=== PATIENT | male | born 1990 | race Caucasian/White ===

== ENCOUNTER 2016-06-06 14:51 | Emergency (ER) | payer MEDICAID ==
[2016-06-06] MEDS ORDERED: Sodium Chloride 0.9% 1,000 ML IV ONE (15:20)
--- NOTE | 2016-06-06 15:20 | EDM.PDOC ---
ED HISTORY OF PRESENT ILLNESS - General Chief Complaint: Respiratory Problem Stated Complaint: CHEST PAIN Time Seen by Provider: 06/06/16 15:14 Source of Information: Reports: Patient History Limitations: Reports: No limitations - History of Present Illness INITIAL COMMENTS - FREE TEXT/NARRATIVE: 25-year-old male presents the ED with complaints of diffuse central chest pain it radiates through towards his left shoulder blade. Seemed to start almost in the pit of his stomach. On for the last 2 weeks which is much worse today than it has ever been. He is obviously hyperventilating. He denies feeling of a tingling in his extremities. He is a little lightheaded. He states he does not use energy drinks. Does not use any street drugs. Does smoke cigarettes she is a pack per day. Drinks alcohol occasionally. He is otherwise considered healthy. His ECG shows sinus tachycardia at 120 per minute with T wave inversion in V5 V6 23 and aVF there for some given some consideration of possible pericarditis. He states the pain is worse when he lies down. He is febrile chested he has left ventricular hypertrophy pattern which is considered normal variation. QT interval is prolonged at 402. States he does do cough. Has not been sick recently with fever or chills. Denies any nausea vomiting. Denies any heartburn Symptom Onset Date: 06/06/16 (Facet having similar symptoms off and on for the better part of 2 weeks. If she is worse today.) Timing/Duration: Reports: Day(s):, Getting worse, Intermittent, Waxing/waning Severity: severe (Dates 10 out of 10 central chest the) Location, General: Reports: chest (Chest mostly at the lower retrosternal area radiating to to the left is) Quality: Reports: Ache, Other (Feels like he can't get a full deep breath.) Improves with: Reports: None Worsens with: Reports: None Context, General: Denies: Activity, Exercise, Lifting, Sick contact, Trauma, Other Associated Symptoms (General): Reports: chest pain, shortness of breath. Denies : confusion, cough, cough w sputum, diaphoresis, fever/chills, headaches, loss of appetite, malaise, nausea/vomiting, rash, seizure, syncope Treatments [employer]: Reports: Other (see below) (None) - Related Data Allergies/ADRs: Allergies Allergy/AdvReac Type Severity Reaction Status Date / Time No Known Allergies Allergy Verified 06/06/16 15:06 Home Meds: Home Meds . [No Known Home Meds] 06/06/16 [History] Past Medical History - Past Health History Medical/Surgical History: Denies Medical/Surgical History Social & Family History - Tobacco Use Smoking Status *Q: Current Every Day Smoker Years of Tobacco use: 4 Packs/Tins Daily: 0.5 - Caffeine Use Caffeine Use: Reports: Soda - Recreational Drug Use Recreational Drug Use: No ED ROS GENERAL - Review of Systems Review Of Systems: See Below Constitutional: Denies: fever, chills, malaise, weakness, fatigue, decreased appetite, weight loss HEENT: Reports: No symptoms Respiratory: Reports: Shortness of Breath, Cough. Denies: Wheezing, Pleuritic Chest Pain, Sputum, Hemoptysis (Occasional cough from smoking.) Cardiovascular: Reports: Chest pain, Lightheadedness. Denies: Blood pressure problem (He seems to present him), Claudication, Dyspnea on exertion, Edema, Orthopnea, Palpitations, PND, Syncope Endocrine: Reports: no symptoms GI/Abdominal: Reports: No symptoms : Reports: no symptoms Musculoskeletal: Reports: no symptoms Skin: Reports: no symptoms Neurological: Reports: No Symptoms Psychiatric: Reports: No symptoms Hematologic/Lymphatic: Reports: no symptoms ED EXAM, GENERAL - Physical Exam Exam: See Below Exam Limited By: No limitations General Appearance: alert, WD/WN (He is hyperventilating significantly at the time of exam.), moderate distress (Moderate to severe hyperventilation syndrome. ) Eye Exam: bilateral eye: normal inspection Ears: normal TMs Throat/Mouth: Normal inspection, Normal lips, Normal teeth, Normal oropharynx Head: atraumatic, normocephalic Neck: normal inspection, supple, non-tender, full range of motion. No: lymphadenopathy (L), lymphadenopathy (R) Respiratory/Chest: lungs clear (Motor tachypnea. 20 per minute on my assessment) , normal breath sounds, no accessory muscle use, respiratory distress, rhonchi ( Base of right lung) Cardiovascular: normal peripheral pulses, regular rate, rhythm, no edema, no gallop, no murmur, tachycardia (Tachycardia 0.33 per minute. Monitor revealed sinus tachycardia.) Peripheral Pulses: 3+: posterior tibial (L), posterior tibial (R), dorsalis pedis (L), dorsalis pedis (R) GI/Abdominal: normal bowel sounds, non tender, no organomegaly, no distention, other (Scaphoid abdomen. No organomegaly) Extremities: normal inspection, normal range of motion, non-tender, no pedal edema, normal capillary refill Neurological: alert, oriented, CN II-XII intact, normal cognition, normal gait, normal reflexes, no motor/sensory deficits Psychiatric: normal affect, normal mood Skin Exam: Warm, Dry, Intact, Normal color, No rash EKG INTERPRETATION EKG Date: 06/06/16 Time: 15:05 Rhythm: other (Sinus tachycardia at 120 per minute.) Rate (beats/min): 128 [place]: RAD-right axis deviation (Physical heart right axis deviation 104) P-wave: present QRS: other (His left ventricular hypertrophy pattern which be normal for his stature and chest and young age.) ST-T: other (He does have T wave inversion in leads V4 and V6 as well as in aVF and lead 2 and in the bone. Therefore consideration of possible pericarditis entertained.) QT: prolonged Course - Vital Signs Last Recorded V/S: Last Vital Signs Temp 36.7 C 06/06/16 15:01 Pulse 133 H 06/06/16 15:01 Resp 21 H 06/06/16 15:01 BP 125/69 06/06/16 15:01 Pulse Ox 100 06/06/16 15:01 - Orders/Labs/Meds Orders: Active Orders 24 hr Category Date Time Status EKG Documentation Completion [RC] STAT Care 06/06/16 15:21 Active Chest 1V Frontal [CR] Stat Exams 06/06/16 15:21 Taken Ketorolac [Toradol] Med 06/06/16 15:30 Active 30 mg IVPUSH ONETIME Sodium Chloride 0.9% @ 50 MLS/HR(1000ml Bag) Med 06/06/16 17:30 Ordered Sodium Chloride 0.9% [Normal Saline] 1,000 ml IV ASDIRECTED Sodium Chloride 0.9% [Normal Saline] 1,000 ml Med 06/06/16 16:00 Stop Req IV ASDIRECTED Sodium Chloride 0.9% [Normal Saline] 100 ml Med 06/06/16 16:15 Stop Req IV ASDIRECTED Medication Orders Sodium Chloride (Normal Saline) 1,000 mls @ 75 mls/hr IV ASDIRECTED SUZY Sodium Chloride (Normal Saline) 100 mls @ 60 mls/hr IV ASDIRECTED SUZY Last Admin: 06/06/16 17:02 Dose: 60 mls/hr Sodium Chloride (Normal Saline) 1,000 mls @ 50 mls/hr IV ASDIRECTED SUZY Ketorolac Tromethamine (Toradol) 30 mg IVPUSH ONETIME SUZY Last Admin: 06/06/16 15:37 Dose: 30 mg Labs: Laboratory Tests 06/06/16 06/06/16 06/06/16 Range/Units 15:10 15:10 15:10 WBC 8.89 (4.23-9.07) K/mm3 RBC 4.94 (4.63-6.08) M/mm3 Hgb 14.6 (13.7-17.5) gm/L Hct 42.1 (40.1-51.0) % MCV 85.2 (79.0-92.2) fl MCH 29.6 (25.7-32.2) pg MCHC 34.7 (32.2-35.5) g/dl RDW Std Deviation 43.8 (35.1-43.9) fL Plt Count 206 (163-337) K/mm3 MPV 12.0 (9.4-12.3) fl Neutrophils % (Manual) 72 H (40-60) % Band Neutrophils % 0 (0-10) % Lymphocytes % (Manual) 24 (20-40) % Atypical Lymphs % 0 % Monocytes % (Manual) 2 (2-10) % Eosinophils % (Manual) 2 (0.8-7.0) % Basophils % (Manual) 0 L (0.2-1.2) Platelet Estimate Adequate RBC Morph Comment Normal ESR 10 (0-15) mm/hr D-Dimer, Quantitative (0.19-0.59) mg/L Sodium 143 (136-145) mEq/L Potassium 3.8 (3.5-5.1) mEq/L Chloride 106 (98-107) mEq/L Carbon Dioxide 21 (21-32) mEq/L Anion Gap 19.8 H (5-15) BUN 16 (7-18) mg/dL Creatinine 1.1 (0.7-1.3) mg/dL Est Cr Clr Drug Dosing 109.62 mL/min Estimated GFR (MDRD) > 60 (>60) mL/min BUN/Creatinine Ratio 14.5 (14-18) Glucose 98 (74-106) mg/dL Calcium 9.1 (8.5-10.1) mg/dL Total Bilirubin 1.8 H (0.2-1.0) mg/dL AST 29 (15-37) U/L ALT 42 (16-63) U/L Alkaline Phosphatase 81 (46-116) U/L CK-MB (CK-2) 0.9 (0-3.6) ng/ml Troponin I 0.044 (0.00-0.056) ng/mL C-Reactive Protein 0.6 (<1.0) mg/dL B-Natriuretic Peptide (0-100) pg/mL Total Protein 6.5 (6.4-8.2) g/dl Albumin 3.6 (3.4-5.0) g/dl Globulin 2.9 gm/dL Albumin/Globulin Ratio 1.2 (1-2) Urine Opiates Screen (NEGATIVE) Ur Buprenorphine Scrn (NEGATIVE) Ur Oxycodone Screen (NEGATIVE) Urine Methadone Screen (NEGATIVE) Ur Propoxyphene Screen (NEGATIVE) Ur Barbiturates Screen (NEGATIVE) Ur Tricyclics Screen (NEGATIVE) Ur Phencyclidine Scrn (NEGATIVE) Ur Amphetamine Screen (NEGATIVE) U Methamphetamines Scrn (NEGATIVE) U Benzodiazepines Scrn (NEGATIVE) U Cocaine Metab Screen (NEGATIVE) U Marijuana (THC) Screen (NEGATIVE) 06/06/16 06/06/16 06/06/16 Range/Units 15:10 15:10 15:30 WBC (4.23-9.07) K/mm3 RBC (4.63-6.08) M/mm3 Hgb (13.7-17.5) gm/L Hct (40.1-51.0) % MCV (79.0-92.2) fl MCH (25.7-32.2) pg MCHC (32.2-35.5) g/dl RDW Std Deviation (35.1-43.9) fL Plt Count (163-337) K/mm3 MPV (9.4-12.3) fl Neutrophils % (Manual) (40-60) % Band Neutrophils % (0-10) % Lymphocytes % (Manual) (20-40) % Atypical Lymphs % % Monocytes % (Manual) (2-10) % Eosinophils % (Manual) (0.8-7.0) % Basophils % (Manual) (0.2-1.2) Platelet Estimate RBC Morph Comment ESR (0-15) mm/hr D-Dimer, Quantitative 1.78 H (0.19-0.59) mg/L Sodium (136-145) mEq/L Potassium (3.5-5.1) mEq/L Chloride (98-107) mEq/L Carbon Dioxide (21-32) mEq/L Anion Gap (5-15) BUN (7-18) mg/dL Creatinine (0.7-1.3) mg/dL Est Cr Clr Drug Dosing mL/min Estimated GFR (MDRD) (>60) mL/min BUN/Creatinine Ratio (14-18) Glucose (74-106) mg/dL Calcium (8.5-10.1) mg/dL Total Bilirubin (0.2-1.0) mg/dL AST (15-37) U/L ALT (16-63) U/L Alkaline Phosphatase (46-116) U/L CK-MB (CK-2) (0-3.6) ng/ml Troponin I (0.00-0.056) ng/mL C-Reactive Protein (<1.0) mg/dL B-Natriuretic Peptide 1320 H (0-100) pg/mL Total Protein (6.4-8.2) g/dl Albumin (3.4-5.0) g/dl Globulin gm/dL Albumin/Globulin Ratio (1-2) Urine Opiates Screen Negative (NEGATIVE) Ur Buprenorphine Scrn Negative (NEGATIVE) Ur Oxycodone Screen Negative (NEGATIVE) Urine Methadone Screen Negative (NEGATIVE) Ur Propoxyphene Screen Negative (NEGATIVE) Ur Barbiturates Screen Negative (NEGATIVE) Ur Tricyclics Screen Negative (NEGATIVE) Ur Phencyclidine Scrn Negative (NEGATIVE) Ur Amphetamine Screen Presumptive positive H (NEGATIVE) U Methamphetamines Scrn Presumptive positive H (NEGATIVE) U Benzodiazepines Scrn Negative (NEGATIVE) U Cocaine Metab Screen Negative (NEGATIVE) U Marijuana (THC) Screen Negative (NEGATIVE) Meds: Medications Generic Name Dose Route Start Last Admin Trade Name Freq PRN Reason Stop Dose Admin Sodium Chloride 1,000 mls @ 75 mls/hr 06/06/16 16:00 Normal Saline IV ASDIRECTED SUZY Sodium Chloride 100 mls @ 60 mls/hr 06/06/16 16:15 06/06/16 17:02 Normal Saline IV 60 mls/hr ASDIRECTED SUZY Administration Sodium Chloride 1,000 mls @ 50 mls/hr 06/06/16 17:30 Normal Saline IV ASDIRECTED SUZY Ketorolac Tromethamine 30 mg 06/06/16 15:30 06/06/16 15:37 Toradol IVPUSH 30 mg ONETIME SUZY Administration Discontinued Medications Generic Name Dose Route Start Last Admin Trade Name Freq PRN Reason Stop Dose Admin Furosemide 40 mg 06/06/16 15:55 06/06/16 16:06 Lasix IVPUSH 06/06/16 15:56 40 mg NOW ONE Administration Furosemide 40 mg 06/06/16 17:20 Lasix IVPUSH 06/06/16 17:21 NOW ONE Hydromorphone HCl 0.5 mg 06/06/16 15:22 06/06/16 15:36 Dilaudid IVPUSH 06/06/16 15:23 0.5 mg ONETIME ONE Administration Sodium Chloride 1,000 mls @ 500 mls/hr 06/06/16 15:20 06/06/16 15:35 Normal Saline IV 06/06/16 17:19 500 mls/hr ONETIME ONE Administration Iopamidol 50 ml 06/06/16 16:09 06/06/16 17:02 Isovue-370 (76%) IVPUSH 06/06/16 16:10 5 ml ONETIME ONE Administration Iopamidol 100 ml 06/06/16 16:09 06/06/16 17:02 Isovue-370 (76%) IVPUSH 06/06/16 16:10 100 ml ONETIME ONE Administration Lorazepam 1 mg 06/06/16 15:22 06/06/16 15:35 Ativan IVPUSH 06/06/16 15:23 1 mg ONETIME ONE Administration Sodium Chloride 10 ml 06/06/16 16:09 06/06/16 17:02 Saline Flush FLUSH 06/06/16 16:10 10 ml ONETIME ONE Administration - Radiology Interpretation Free Text/Narrative:: -year-old male presents the ED with chief complaint of central chest pain radiating through to his left shoulder blade. Described as a heaviness and inability get a full deep breath. He is hyperventilating at the time of examination with a sinus tachycardia of 1:30 per minute. It appears that he is suffering a panic attack. He is also ECG changes that maybe he could have some pericarditis. He also reports the pain seems worse when he's lying down. Plan IV normal saline at 500 mils per hour. Given Toradol 30 mg IV with Ativan 1 mg IV Dilaudid 0.5 mg IV for relief of pain and to provide some sedation. Chest performed in routine labs to include sedimentation rate and CRP. - Re-Assessments/Exams Free Text/Narrative Re-Assessment/Exam: 06/06/16 16:02 one view chest x-ray reveals huge cardiomegaly with evidence of diffuse or edema. 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 Ideally will be reduced to 75 mils per hour. After the Dilaudid his O2 sats dropped to 90% he was placed on oxygen therefore at 3 L per minute by nasal cannula. CT of his chest performed with angiogram procedure make sure there is no pericarditis. Lasix 40 mg IV bolus. 06/06/16 16:10 labs revealed white count of 8.89 with 72% neutrophils and no bands. Hemoglobin is 14.6 hematocrit of 42.1 platelets 206,000. Chemistry shows sodium 143 potassium 3.8 chloride 106 bicarbonate is 21. Anion gap is elevated at 19.8. BUN is 16 creatinine is 1.1 he GFR is greater than 60. Troponin is 0.044 CRP is 0.6. Urine drug screen is positive for presumptive amphetamines/ methamphetamines. 06/06/16 16:23 BNP is elevated at 1320 which correlates with his x-ray picture. D-dimer is 1.78. He is using methamphetamines and lied to me his ECG was not using any street drugs he could have an ischemic cardiomyopathy. Will await the results of the CT pulmonary angiogram and then contact cardiology in [place]. 06/06/16 17:10: CT pulmonary angiogram does not reveal any evidence of pulmonary emboli. There is a small right-sided pleural effusion. The heart is markedly enlarged but the ventricle seemed to fill adequately with contrast without evidence of any cardiac tumors. Case discussed with on-call client associate Dr. Ruzi in [facility] and he is advised the patient be transferred to [place] for care. He is asked that the hospitalist care for the patient and do the admission. I therefore spoke with Dr. Clay and he is attempted care. Patient will be transported to that facility per ground ambulance. He will receive a second dose of Lasix 40 mg IV now. He remains tachycardic at 114 per minute. BP 103/58. O2 sats 100% on 3 L. also went to influenza AB since these viruses or so prevalent as as of late. He can remember being sick with fever or chills within the last month, however Departure - Departure Time of Disposition: 17:27 Disposition: DC/Tfer to Acute Hospital 02 Condition: serious Clinical Impression: Pulmonary edema cardiac cause Cardiomyopathy Qualifiers: Cardiomyopathy type: unspecified Qualified Code(s): I42.9 - Cardiomyopathy, unspecified Forms: ED Department Discharge Additional Instructions: Transfer to [facility] for direct admission to the hospitalist service. This is because you require further investigations as to why your heart this failed you and for treatment of fluid buildup within your lungs which is making her short of breath. - My Orders Last 24 Hours: My Active Orders 06/06/16 15:21 EKG Documentation Completion [RC] STAT Chest 1V Frontal [CR] Stat 06/06/16 15:30 Ketorolac [Toradol] 30 mg IVPUSH ONETIME 06/06/16 16:00 Sodium Chloride 0.9% [Normal Saline] 1,000 ml IV ASDIRECTED 06/06/16 16:15 Sodium Chloride 0.9% [Normal Saline] 100 ml IV ASDIRECTED 06/06/16 17:30 Sodium Chloride 0.9% @ 50 MLS/HR(1000ml Bag) Sodium Chloride 0.9% [Normal Saline] 1,000 ml IV ASDIRECTED - Assessment/Plan Last 24 Hours: My Active Orders 06/06/16 15:21 EKG Documentation Completion [RC] STAT Chest 1V Frontal [CR] Stat 06/06/16 15:30 Ketorolac [Toradol] 30 mg IVPUSH ONETIME 06/06/16 16:00 Sodium Chloride 0.9% [Normal Saline] 1,000 ml IV ASDIRECTED 06/06/16 16:15 Sodium Chloride 0.9% [Normal Saline] 100 ml IV ASDIRECTED 06/06/16 17:30 Sodium Chloride 0.9% @ 50 MLS/HR(1000ml Bag) Sodium Chloride 0.9% [Normal Saline] 1,000 ml IV ASDIRECTED
[2016-06-06] MEDS ORDERED: LORazepam 2 MG/ML MDV IVPUSH ONE (15:22)
[2016-06-06] MEDS ORDERED: HYDROmorphone 0.5 MG/0.5 ML Syringe IVPUSH ONE (15:22)
[2016-06-06] MEDS ORDERED: Ketorolac 30 MG/ML SDV IVPUSH SCH (15:30)
[2016-06-06] MEDS ORDERED: Furosemide 40 MG/4 ML VIAL IVPUSH ONE ×2 (15:55→17:20)
[2016-06-06] MEDS ORDERED: Sodium Chloride 0.9% 1,000 ML IV SCH ×2 (16:00→17:30)
[2016-06-06] MEDS ORDERED: Sodium Chloride 0.9% 10 ML Syringe FLUSH ONE (16:09)
[2016-06-06] MEDS ORDERED: Iopamidol 755 Mg/ML 100 ML Bottle IVPUSH ONE (16:09)
[2016-06-06] MEDS ORDERED: Iopamidol 755 MG/ML 50 ML Bottle IVPUSH ONE (16:09)
[2016-06-06] MEDS ORDERED: Sodium Chloride 0.9% 100 ML IV SCH (16:15)
--- NOTE | 2016-06-06 16:56 | CT ---
CT chest Technique: Multiple axial sections of the chest were obtained. Intravenous contrast was utilized. Findings: Heart is enlarged. Minimal pericardial effusion is seen. Small to moderate-sized right-sided pleural effusion is seen. Multifocal ill-defined nodular areas of increased density seen within both lungs, more prominent on the right side. Haziness within the perivascular regions are seen presumably due to pulmonary vascular congestion. More hazy density with more alveolar component is seen within the right lung base. No filling defects are seen to indicate pulmonary embolism. Bone window settings were reviewed which appear within normal limits for the patient's age. Impression: 1. Cardiomegaly with minimal pericardial effusion. 2. Multifocal ill-defined nodular densities within both sides of the chest more prominent on the right side. This may represent mild areas of multifocal pneumonia. 3. Hazy alveolar density within the right lung base with differential including early pulmonary edema versus early pneumonia. 4. Hazy perivascular markings presumably due to pulmonary vascular congestion. 5. No findings of pulmonary embolism. Diagnostic code #3
[2016-06-06 18:50] VITALS: BP 109/78
--- NOTE | 2016-06-08 08:02 | CR ---
Chest: Portable view of the chest was obtained. Comparison: No previous chest x-ray. Heart is enlarged. Pulmonary vessels are congested. Bony structures are grossly intact. Impression: 1. Findings suspicious for CHF. Diagnostic code #3
== END 2016-06-06 18:19 ==
LOC: JD.ED 14:51
DX: J81.1 Chronic pulmonary edema (principal); I42.9 Cardiomyopathy, unspecified; F17.210 Nicotine dependence, cigarettes, uncomplicated
CPT/HCPCS: 36415; 71010; 71275; 80053; 80306; 82553; 83880; 84484; 85025; 85379; 85652; 86140; 87804; 93005; 96361; 96374; 96375; 96376; 99285; J1170; J1885; J1940; J2060; J7030; J7040; J7050; Q9967

== ENCOUNTER 2016-06-21 15:30 | Emergency (ER) | payer MEDICAID ==
[2016-06-21 15:56] VITALS: BP 97/55
--- NOTE | 2016-06-21 16:08 | EDM.PDOC ---
ED HPI GENERAL MEDICAL PROBLEM - General Chief Complaint: Chest Pain Stated Complaint: [facility] Time Seen by Provider: 06/21/16 15:36 Source of Information: Reports: Patient, EMS, Old records, RN notes reviewed History Limitations: Reports: No limitations - History of Present Illness INITIAL COMMENTS - FREE TEXT/NARRATIVE: The patient was seen in this ED 06/06/2016 port chest pain and hyperventilation. He was found to have substantial cardiomegaly and CHF. His urine drug screen was positive for amphetamine and methamphetamine, which is the currently believed etiology of his cardiomyopathy. The patient was transferred to [facility], then discharged home on 06/11/2016 on numerous cardiac medications. The patient's mother state that the patient developed shortness of breath, sweatiness, dizziness, chest pressure, and altered consciousness earlier today. She states that the patient has done this before, due to hyperventilation. She was driving him to the ED, when he became unresponsive, therefore she drove him to the EMS station. EMS told me that they found the patient to have low blood pressure, therefore they gave him a 300 mL bolus of lactated Ringer's, with a subsequent BP of 112/ 76. They gave him sublingual nitroglycerin, which again dropped his BP, therefore they gave him an additional 200 mL bolus of lactated Ringer's. Subsequent BP was up again. They gave him 2 mg of morphine, which caused him to become lethargic, the condition he is in upon arrival to the ED. Treatments PHYSICIAN PRACTICE COORDINATOR: Reports: Other (see below) Other Treatments PHYSICIAN PRACTICE COORDINATOR: see EMS report Middle Chest Pain Score (Numeric/FACES): 7 - Related Data Allergies Allergy/AdvReac Type Severity Reaction Status Date / Time No Known Allergies Allergy Verified 06/21/16 15:45 Home Meds: Home Meds Aspirin [Halfprin] 81 mg PO DAILY 06/21/16 [History] Carvedilol 1 tab PO BID 06/21/16 [History] Furosemide [Lasix] 20 mg PO DAILY 06/21/16 [History] Lisinopril 1 tab PO DAILY 06/21/16 [History] Spironolactone [Aldactone] 12.5 mg PO DAILY 06/21/16 [History] Past Medical History Cardiovascular History: Reports: Cardiomyopathy (Possibly due to methamphetamine use), Heart Failure Social & Family History - Tobacco Use Smoking Status *Q: Former Smoker Years of Tobacco use: 6 Packs/Tins Daily: 0.4 Used Tobacco, but Quit: Yes Month Tobacco Last Used: Early May 2015 - Caffeine Use Caffeine Use: Reports: Soda - Alcohol Use Alcohol Use History: Yes Date/Time of Last Drink Comment: May 2015 - Recreational Drug Use Recreational Drug Use: Yes Drug Use in Last 12 Months: Yes Recreational Drug Type: Reports: Amphetamines (Speed), Methamphetamine - Living Situation & Occupation Living situation: Reports: single, with family (Mother) Occupation: unemployed ED ROS GENERAL - Review of Systems Review Of Systems: See Below Constitutional: Reports: chills HEENT: Reports: No symptoms Respiratory: Reports: Shortness of Breath, Cough Cardiovascular: Reports: Chest pain, Dyspnea on exertion Endocrine: Reports: no symptoms GI/Abdominal: Reports: Nausea : Reports: no symptoms Musculoskeletal: Reports: no symptoms Skin: Reports: no symptoms Neurological: Reports: No Symptoms Psychiatric: Reports: Anxiety Hematologic/Lymphatic: Reports: no symptoms Immunologic: Reports: no symptoms ED EXAM, GENERAL - Physical Exam Exam: See Below Exam Limited By: Other (Lethargic upon arrival) General Appearance: alert, WD/WN, anxious, mild distress Eye Exam: bilateral eye: EOMI, normal inspection Ears: normal external exam, hearing grossly normal Ear Exam: bilateral ear: auricle normal Nose: normal inspection, no blood Throat/Mouth: Normal inspection, Normal lips, Normal voice, No airway compromise Head: atraumatic, normocephalic Neck: normal inspection, full range of motion Respiratory/Chest: no respiratory distress, lungs clear, normal breath sounds, no accessory muscle use Cardiovascular: normal peripheral pulses, no gallop, no JVD, no murmur, no rub, tachycardia (regular) Peripheral Pulses: 3+: radial (L), radial (R) GI/Abdominal: normal bowel sounds, soft, non tender, no organomegaly, no distention, no abnormal bruit, no mass (Male) Exam: No hernia, Normal inspection, Normal prostate, Circumcised Rectal (Males) Exam: Normal exam, Normal rectal tone, Prostate normal Back Exam: normal inspection, full range of motion, NT Extremities: normal inspection, normal range of motion, no pedal edema, normal capillary refill Neurological: alert, oriented, normal cognition, no motor/sensory deficits Psychiatric: normal affect Skin Exam: Warm, Dry, Intact, Normal color, No rash Lymphatic: no adenopathy EKG INTERPRETATION EKG Date: 06/21/16 Time: 15:42 Rhythm: other (Atrial tachycardia) Rate (beats/min): 111 [place]: LAD-left axis deviation P-wave: present QRS: other (LAFB with LAD) ST-T: normal QT: normal Comparison: change from previous EKG ([place] now LAD, from 06/06/2016) Course - Vital Signs Last Recorded V/S: Last Vital Signs Temp 36.8 C 06/21/16 15:45 Pulse 115 H 06/21/16 15:45 Resp 27 H 06/21/16 15:45 BP 97/55 L 06/21/16 15:45 Pulse Ox 95 06/21/16 15:45 - Orders/Labs/Meds Labs: Laboratory Tests 06/21/16 06/21/16 06/21/16 Range/Units 15:42 16:04 16:04 WBC 12.93 H (4.23-9.07) K/mm3 RBC 5.22 (4.63-6.08) M/mm3 Hgb 15.5 (13.7-17.5) gm/L Hct 46.0 (40.1-51.0) % MCV 88.1 (79.0-92.2) fl MCH 29.7 (25.7-32.2) pg MCHC 33.7 (32.2-35.5) g/dl RDW Std Deviation 48.6 H (35.1-43.9) fL Plt Count 176 (163-337) K/mm3 MPV 11.9 (9.4-12.3) fl Neutrophils % (Manual) 89 H (40-60) % Band Neutrophils % 0 (0-10) % Lymphocytes % (Manual) 8 L (20-40) % Atypical Lymphs % 0 % Monocytes % (Manual) 3 (2-10) % Eosinophils % (Manual) 0 L (0.8-7.0) % Basophils % (Manual) 0 L (0.2-1.2) Platelet Estimate Adequate RBC Morph Comment Normal PT (8.0-13.0) SECONDS INR APTT (22-36) SECONDS D-Dimer, Quantitative (0.19-0.59) mg/L Puncture Site Lt brachial ABG pH 7.55 H (7.35-7.45) ABG pCO2 23.8 L (35.0-45.0) mmHg ABG pO2 80.0 (80.0-100.0) mmHg ABG HCO3 20.5 L (22.0-26.0) meq/L ABG O2 Saturation 97.7 H (96.0-97.0) % ABG Base Excess 0.0 (-2-2.0) Cy Test Positive O2 Delivery Device Room air Oxygen Flow Rate 0.0 FiO2 0.00 L (21.00-100.00) % Sodium 136 (136-145) mEq/L Potassium 4.3 (3.5-5.1) mEq/L Chloride 98 (98-107) mEq/L Carbon Dioxide 23 (21-32) mEq/L Anion Gap 19.3 H (5-15) BUN 26 H (7-18) mg/dL Creatinine 1.3 (0.7-1.3) mg/dL Est Cr Clr Drug Dosing 84.88 mL/min Estimated GFR (MDRD) > 60 (>60) mL/min BUN/Creatinine Ratio 20.0 H (14-18) Glucose 137 H (74-106) mg/dL Calcium 9.2 (8.5-10.1) mg/dL Magnesium 2.3 (1.8-2.4) mg/dl Total Bilirubin 3.2 H (0.2-1.0) mg/dL AST 26 (15-37) U/L ALT 38 (16-63) U/L Alkaline Phosphatase 78 (46-116) U/L Troponin I 0.027 (0.00-0.056) ng/mL B-Natriuretic Peptide (0-100) pg/mL Total Protein 6.7 (6.4-8.2) g/dl Albumin 3.2 L (3.4-5.0) g/dl Globulin 3.5 gm/dL Albumin/Globulin Ratio 0.9 L (1-2) Lipase 190 (73-393) U/L Urine Opiates Screen (NEGATIVE) Ur Buprenorphine Scrn (NEGATIVE) Ur Oxycodone Screen (NEGATIVE) Urine Methadone Screen (NEGATIVE) Ur Propoxyphene Screen (NEGATIVE) Ur Barbiturates Screen (NEGATIVE) Ur Tricyclics Screen (NEGATIVE) Ur Phencyclidine Scrn (NEGATIVE) Ur Amphetamine Screen (NEGATIVE) U Methamphetamines Scrn (NEGATIVE) U Benzodiazepines Scrn (NEGATIVE) U Cocaine Metab Screen (NEGATIVE) U Marijuana (THC) Screen (NEGATIVE) Ethyl Alcohol 0.00 (0.00) gm% 06/21/16 06/21/16 06/21/16 Range/Units 16:04 16:04 16:57 WBC (4.23-9.07) K/mm3 RBC (4.63-6.08) M/mm3 Hgb (13.7-17.5) gm/L Hct (40.1-51.0) % MCV (79.0-92.2) fl MCH (25.7-32.2) pg MCHC (32.2-35.5) g/dl RDW Std Deviation (35.1-43.9) fL Plt Count (163-337) K/mm3 MPV (9.4-12.3) fl Neutrophils % (Manual) (40-60) % Band Neutrophils % (0-10) % Lymphocytes % (Manual) (20-40) % Atypical Lymphs % % Monocytes % (Manual) (2-10) % Eosinophils % (Manual) (0.8-7.0) % Basophils % (Manual) (0.2-1.2) Platelet Estimate RBC Morph Comment PT 13.4 H (8.0-13.0) SECONDS INR 1.21 APTT 30 (22-36) SECONDS D-Dimer, Quantitative 0.67 H (0.19-0.59) mg/L Puncture Site ABG pH (7.35-7.45) ABG pCO2 (35.0-45.0) mmHg ABG pO2 (80.0-100.0) mmHg ABG HCO3 (22.0-26.0) meq/L ABG O2 Saturation (96.0-97.0) % ABG Base Excess (-2-2.0) Cy Test O2 Delivery Device Oxygen Flow Rate FiO2 (21.00-100.00) % Sodium (136-145) mEq/L Potassium (3.5-5.1) mEq/L Chloride (98-107) mEq/L Carbon Dioxide (21-32) mEq/L Anion Gap (5-15) BUN (7-18) mg/dL Creatinine (0.7-1.3) mg/dL Est Cr Clr Drug Dosing mL/min Estimated GFR (MDRD) (>60) mL/min BUN/Creatinine Ratio (14-18) Glucose (74-106) mg/dL Calcium (8.5-10.1) mg/dL Magnesium (1.8-2.4) mg/dl Total Bilirubin (0.2-1.0) mg/dL AST (15-37) U/L ALT (16-63) U/L Alkaline Phosphatase (46-116) U/L Troponin I (0.00-0.056) ng/mL B-Natriuretic Peptide 2909 H (0-100) pg/mL Total Protein (6.4-8.2) g/dl Albumin (3.4-5.0) g/dl Globulin gm/dL Albumin/Globulin Ratio (1-2) Lipase (73-393) U/L Urine Opiates Screen Presumptive positive H (NEGATIVE) Ur Buprenorphine Scrn Negative (NEGATIVE) Ur Oxycodone Screen Negative (NEGATIVE) Urine Methadone Screen Negative (NEGATIVE) Ur Propoxyphene Screen Negative (NEGATIVE) Ur Barbiturates Screen Negative (NEGATIVE) Ur Tricyclics Screen Negative (NEGATIVE) Ur Phencyclidine Scrn Negative (NEGATIVE) Ur Amphetamine Screen Negative (NEGATIVE) U Methamphetamines Scrn Negative (NEGATIVE) U Benzodiazepines Scrn Negative (NEGATIVE) U Cocaine Metab Screen Negative (NEGATIVE) U Marijuana (THC) Screen Negative (NEGATIVE) Ethyl Alcohol (0.00) gm% - Radiology Interpretation Free Text/Narrative:: Chest radiograph appears to demonstrate significant cardiomegaly and pulmonary vascular congestion, decreased from prior chest radiograph dated 06/06/2016. No pleural effusions seen on this AP view. There are 3 or 4 patchy infiltrates on the right lung field not seen on the prior chest radiograph. No pneumothorax. Formal read per the Radiologist pending. - Re-Assessments/Exams Free Text/Narrative Re-Assessment/Exam: 06/21/16 16:51 The ABG demonstrates acute respiratory alkalosis with adequate oxygenation. The patient's D-dimer is slightly elevated at 0.67, however, it was 1.78 when he was seen in this ED 06/06/2016, and a CT angiogram of his chest was negative for PE at that time. 06/21/16 18:19 The patient's urine drug screen has returned positive for opiates, which could be due to the morphine given by EMS. The remainder of his urine drug screen is negative. 06/21/16 18:32 Test results discussed with the patient and his mother. Today's workup demonstrates that the patient had significant hyperventilation, but I am not finding a medical cause for this, and the patient agrees that it is likely due to anxiety. At this time, he is calm and comfortable, despite no medical treatment. I believe the patient can safely be discharged home. He is to followup with his D[employer] Un[employer], Dr. Patton, this coming 06/24/2016. Departure - Departure Time of Disposition: 18:33 Disposition: Home, Self-Care 01 Condition: fair Clinical Impression: Dilated cardiomyopathy, Hyperventilation syndrome Instructions: Hyperventilation, Cardiomyopathy Referrals: Gadiel Patton MD [Primary Care Provider] - Forms: ED Department Discharge Additional Instructions: You were seen in the emergency room today after developing shortness of breath, sweatiness, dizziness, chest pressure, and altered consciousness. Workup in the ER included extensive blood work, a urine drug screen, an ABG, an ECG, and a chest x-ray. Your workup showed that you were hyperventilating, which is likely responsible for the symptoms you were experiencing. While there is no tests for anxiety, it is MOST LIKELY that you were hyperventilating due to anxiety. Your tests show that you still have dilated cardiomyopathy, and you therefore need to continue to take the medicines you are prescribed. Followup with your D[employer] Un[employer], Dr. Patton, at your previously scheduled appointment this coming 06/24/2016. If any other problems, please do not hesitate to return to the ER.
--- NOTE | 2016-06-22 07:14 | CR ---
Chest: Portable view of the chest was obtained. Comparison: Previous chest x-ray of 06/06/16. Increasing density within the right upper and right lower lung seen from prior study. Heart is enlarged. Pulmonary vessels are slightly congested. Bony structures are grossly intact. Impression: 1. Massive cardiomegaly. 2. Increasing density within the right chest presumably representing worsening pneumonia. 3. Pulmonary vessels are mildly congested. Diagnostic code #3
== END 2016-06-21 18:47 | disposition home or self-care (01) ==
LOC: SUPCPDRO 15:30 → JD.ED 15:30
DX: I42.0 Dilated cardiomyopathy (principal); F45.8 Other somatoform disorders; Z79.82 Long term (current) use of aspirin; Z79.899 Other long term (current) drug therapy; I50.9 Heart failure, unspecified; Z87.891 Personal history of nicotine dependence; F15.90 Other stimulant use, unspecified, uncomplicated
CPT/HCPCS: 36415; 36600; 71010; 80053; 80306; 82803; 83690; 83735; 83880; 84484; 85025; 85379; 85610; 85730; 93005; 99285; G0480; 99284

== ENCOUNTER 2016-06-23 19:32 | Emergency (ER) | payer MEDICAID ==
--- NOTE | 2016-06-23 19:39 | EDM.PDOC ---
ED HPI GENERAL MEDICAL PROBLEM - General Stated Complaint: VOMITING/HAS HEART PROBLEMS Time Seen by Provider: 06/23/16 19:32 Source of Information: Reports: Patient, Family (Mother), Old records, RN notes reviewed History Limitations: Reports: No limitations - History of Present Illness INITIAL COMMENTS - FREE TEXT/NARRATIVE: The patient was seen in this ED 06/06/2016 for chest pain and hyperventilation. He was found to have substantial cardiomegaly and CHF. His urine drug screen was positive for amphetamine and methamphetamine, which is the currently believed etiology of his cardiomyopathy. [facility], then discharged home on 06/11/2016 on Lasix, spironolactone, lisinopril, Coreg, and aspirin. He was discharged home with a Zoll defibrillator vest. The patient was seen by me 2 days ago, 06/21/2016 with complaints of shortness of breath, diaphoresis, dizziness, chest pressure, and altered consciousness. Extensive workup demonstrated significant hyperventilation, likely due to anxiety. The patient calmed down and was comfortable, without medical treatment , prior to being discharged home. The patient is again brought to the ED by his mother, with similar complaints of dizziness, nausea and vomiting, tachypnea, near-syncope, abdominal pain, and not sleeping well. She states that his symptoms have persisted since he was discharged home 2 days ago. Upon arrival, he is found to be tachypneic and tachycardic, but afebrile. The pulse oximeter has difficulty finding a good waveform, but is nevertheless indicating 98-100% SpO2 on room air. Upper Abdomen Pain Score (Numeric/FACES): 7 - Related Data Allergies Allergy/AdvReac Type Severity Reaction Status Date / Time No Known Allergies Allergy Verified 06/23/16 19:45 Home Meds: Home Meds Aspirin [Halfprin] 81 mg PO DAILY 06/21/16 [History] Carvedilol 1 tab PO BID 06/21/16 [History] Furosemide [Lasix] 20 mg PO DAILY 06/21/16 [History] Lisinopril 1 tab PO DAILY 06/21/16 [History] Spironolactone [Aldactone] 12.5 mg PO DAILY 06/21/16 [History] Past Medical History Cardiovascular History: Reports: Cardiomyopathy (Possibly due to methamphetamine use), Heart Failure Psychiatric History: Reports: Addiction, Anxiety Social & Family History - Tobacco Use Smoking Status *Q: Former Smoker Years of Tobacco use: 6 Packs/Tins Daily: 0.4 Used Tobacco, but Quit: Yes Month Tobacco Last Used: Early May 2016 - Caffeine Use Caffeine Use: Reports: Soda - Alcohol Use Alcohol Use History: Yes Date/Time of Last Drink Comment: Quit May 2016 - Recreational Drug Use Recreational Drug Use: Yes Drug Use in Last 12 Months: Yes Recreational Drug Type: Reports: Amphetamines (Speed), Methamphetamine Recreational Drug Use Frequency: Patient Refuses To Answer - Living Situation & Occupation Living situation: Reports: single, with family (Mother) Occupation: unemployed ED ROS GENERAL - Review of Systems Review Of Systems: See Below Constitutional: Reports: chills, decreased appetite HEENT: Reports: No symptoms Respiratory: Reports: Shortness of Breath Cardiovascular: Reports: Chest pain Endocrine: Reports: no symptoms GI/Abdominal: Reports: Abdominal pain, Nausea, Vomiting : Reports: no symptoms Musculoskeletal: Reports: no symptoms Skin: Reports: no symptoms Neurological: Reports: Dizziness Psychiatric: Reports: Anxiety Hematologic/Lymphatic: Reports: no symptoms Immunologic: Reports: no symptoms ED EXAM, GENERAL - Physical Exam Exam: See Below Exam Limited By: No limitations General Appearance: alert, WD/WN, mild distress Eye Exam: bilateral eye: EOMI, normal inspection Ears: normal external exam, hearing grossly normal Ear Exam: bilateral ear: auricle normal Nose: normal inspection, no blood Throat/Mouth: Normal inspection, Normal lips, Normal voice, No airway compromise Head: atraumatic, normocephalic Neck: normal inspection, full range of motion Respiratory/Chest: no respiratory distress, lungs clear, normal breath sounds, no accessory muscle use Cardiovascular: normal peripheral pulses, no edema, no gallop, no JVD, no murmur , no rub, tachycardia (regular) Peripheral Pulses: 4+: radial (L), radial (R) GI/Abdominal: normal bowel sounds, soft, non tender, no organomegaly, no distention, no abnormal bruit, no mass Back Exam: normal inspection, full range of motion. No: CVA tenderness (L), CVA tenderness (R) Extremities: normal inspection, normal range of motion, no pedal edema, normal capillary refill Neurological: alert, oriented, no motor/sensory deficits, slow to respond Psychiatric: other (Unable to assess) Skin Exam: Dry, Intact, Normal color, No rash, Cool Lymphatic: no adenopathy EKG INTERPRETATION EKG Date: 06/23/16 Time: 20:48 Rhythm: other (Sinus tachycardia) Rate (beats/min): 108 [place]: LAD-left axis deviation (LVH) P-wave: enlarged (could reflect patient's thin body habitus) QRS: other (LAFB) ST-T: normal QT: normal Comparison: no change (06/21/2016) Course - Vital Signs Last Recorded V/S: Last Vital Signs Temp 37.2 C 06/23/16 19:39 Pulse 114 H 06/23/16 19:39 Resp 25 H 06/23/16 19:39 BP 107/81 06/23/16 19:39 Pulse Ox 81 L 06/23/16 19:39 Orthostatic Blood Pressure [ 97/75 Standing] Orthostatic Blood Pressure [ 99/75 Sitting] Orthostatic Blood Pressure [ 97/73 Supine] - Orders/Labs/Meds Orders: Active Orders 24 hr Category Date Time Status EKG Documentation Completion [RC] STAT Care 06/23/16 19:43 Active Orthostatic Vital Signs [RC] STAT Care 06/23/16 19:43 Active CULTURE BLOOD [BC] Stat Lab 06/23/16 21:35 Results CULTURE BLOOD [BC] Stat Lab 06/23/16 21:43 Received CULTURE URINE [RM] Stat Lab 06/23/16 20:56 Received Labs: Laboratory Tests 06/23/16 06/23/16 06/23/16 Range/Units 19:50 19:50 19:50 WBC 12.68 H (4.23-9.07) K/mm3 RBC 5.33 (4.63-6.08) M/mm3 Hgb 15.9 (13.7-17.5) gm/L Hct 47.1 (40.1-51.0) % MCV 88.4 (79.0-92.2) fl MCH 29.8 (25.7-32.2) pg MCHC 33.8 (32.2-35.5) g/dl RDW Std Deviation 48.2 H (35.1-43.9) fL Plt Count 202 (163-337) K/mm3 MPV 12.1 (9.4-12.3) fl Neutrophils % (Manual) 87 H (40-60) % Band Neutrophils % 0 (0-10) % Lymphocytes % (Manual) 12 L (20-40) % Atypical Lymphs % 0 % Monocytes % (Manual) 1 L (2-10) % Eosinophils % (Manual) 0 L (0.8-7.0) % Basophils % (Manual) 0 L (0.2-1.2) Platelet Estimate Adequate Plt Morphology Comment See note RBC Morph Comment Normal Sodium 132 L (136-145) mEq/L Potassium 5.3 H (3.5-5.1) mEq/L Chloride 96 L (98-107) mEq/L Carbon Dioxide 25 (21-32) mEq/L Anion Gap 16.3 H (5-15) BUN 36 H (7-18) mg/dL Creatinine 1.4 H (0.7-1.3) mg/dL Est Cr Clr Drug Dosing 77.78 mL/min Estimated GFR (MDRD) > 60 (>60) mL/min BUN/Creatinine Ratio 25.7 H (14-18) Glucose 144 H (74-106) mg/dL Lactic Acid (0.4-2.0) mmol/L Calcium 9.3 (8.5-10.1) mg/dL Magnesium 2.4 (1.8-2.4) mg/dl Total Bilirubin 3.1 H (0.2-1.0) mg/dL AST 63 H (15-37) U/L ALT 75 H (16-63) U/L Alkaline Phosphatase 88 (46-116) U/L Troponin I 0.040 (0.00-0.056) ng/mL B-Natriuretic Peptide 4491 H (0-100) pg/mL Total Protein 7.1 (6.4-8.2) g/dl Albumin 3.0 L (3.4-5.0) g/dl Globulin 4.1 gm/dL Albumin/Globulin Ratio 0.7 L (1-2) Lipase 138 (73-393) U/L Urine Color (Yellow) Urine Appearance (Clear) Urine pH (5.0-8.0) Ur Specific Alston (1.005-1.030) Urine Protein (Negative) Urine Glucose (UA) (Negative) Urine Ketones (Negative) Urine Occult Blood (Negative) Urine Nitrite (Negative) Urine Bilirubin (Negative) Urine Urobilinogen (0.2-1.0) Ur Leukocyte Esterase (Negative) Urine RBC (0-5) /hpf Urine WBC (0-5) /hpf Ur Epithelial Cells Ur Squamous Epith Cells (0-5) /hpf Urine Bacteria (FEW) /hpf Hyaline Casts (0-5) /lpf Urine Mucus (FEW) /hpf Urine Opiates Screen (NEGATIVE) Ur Buprenorphine Scrn (NEGATIVE) Ur Oxycodone Screen (NEGATIVE) Urine Methadone Screen (NEGATIVE) Ur Propoxyphene Screen (NEGATIVE) Ur Barbiturates Screen (NEGATIVE) Ur Tricyclics Screen (NEGATIVE) Ur Phencyclidine Scrn (NEGATIVE) Ur Amphetamine Screen (NEGATIVE) U Methamphetamines Scrn (NEGATIVE) U Benzodiazepines Scrn (NEGATIVE) U Cocaine Metab Screen (NEGATIVE) U Marijuana (THC) Screen (NEGATIVE) 06/23/16 06/23/16 06/23/16 Range/Units 20:49 20:56 20:56 WBC (4.23-9.07) K/mm3 RBC (4.63-6.08) M/mm3 Hgb (13.7-17.5) gm/L Hct (40.1-51.0) % MCV (79.0-92.2) fl MCH (25.7-32.2) pg MCHC (32.2-35.5) g/dl RDW Std Deviation (35.1-43.9) fL Plt Count (163-337) K/mm3 MPV (9.4-12.3) fl Neutrophils % (Manual) (40-60) % Band Neutrophils % (0-10) % Lymphocytes % (Manual) (20-40) % Atypical Lymphs % % Monocytes % (Manual) (2-10) % Eosinophils % (Manual) (0.8-7.0) % Basophils % (Manual) (0.2-1.2) Platelet Estimate Plt Morphology Comment RBC Morph Comment Sodium (136-145) mEq/L Potassium (3.5-5.1) mEq/L Chloride (98-107) mEq/L Carbon Dioxide (21-32) mEq/L Anion Gap (5-15) BUN (7-18) mg/dL Creatinine (0.7-1.3) mg/dL Est Cr Clr Drug Dosing mL/min Estimated GFR (MDRD) (>60) mL/min BUN/Creatinine Ratio (14-18) Glucose (74-106) mg/dL Lactic Acid 5.0 H (0.4-2.0) mmol/L Calcium (8.5-10.1) mg/dL Magnesium (1.8-2.4) mg/dl Total Bilirubin (0.2-1.0) mg/dL AST (15-37) U/L ALT (16-63) U/L Alkaline Phosphatase (46-116) U/L Troponin I (0.00-0.056) ng/mL B-Natriuretic Peptide (0-100) pg/mL Total Protein (6.4-8.2) g/dl Albumin (3.4-5.0) g/dl Globulin gm/dL Albumin/Globulin Ratio (1-2) Lipase (73-393) U/L Urine Color Dark yellow (Yellow) Urine Appearance Slt cloudy H (Clear) Urine pH 5.5 (5.0-8.0) Ur Specific Alston 1.010 (1.005-1.030) Urine Protein 2+ H (Negative) Urine Glucose (UA) Negative (Negative) Urine Ketones Negative (Negative) Urine Occult Blood 2+ H (Negative) Urine Nitrite Negative (Negative) Urine Bilirubin 2+ H (Negative) Urine Urobilinogen >=8.0 H (0.2-1.0) Ur Leukocyte Esterase Negative (Negative) Urine RBC 5-10 H (0-5) /hpf Urine WBC 0-5 (0-5) /hpf Ur Epithelial Cells Not Reportable Ur Squamous Epith Cells 0-5 (0-5) /hpf Urine Bacteria Moderate H (FEW) /hpf Hyaline Casts 10-20 H (0-5) /lpf Urine Mucus Few (FEW) /hpf Urine Opiates Screen Negative (NEGATIVE) Ur Buprenorphine Scrn Negative (NEGATIVE) Ur Oxycodone Screen Negative (NEGATIVE) Urine Methadone Screen Negative (NEGATIVE) Ur Propoxyphene Screen Negative (NEGATIVE) Ur Barbiturates Screen Negative (NEGATIVE) Ur Tricyclics Screen Negative (NEGATIVE) Ur Phencyclidine Scrn Negative (NEGATIVE) Ur Amphetamine Screen Negative (NEGATIVE) U Methamphetamines Scrn Negative (NEGATIVE) U Benzodiazepines Scrn Negative (NEGATIVE) U Cocaine Metab Screen Negative (NEGATIVE) U Marijuana (THC) Screen Negative (NEGATIVE) Meds: Medications Discontinued Medications Generic Name Dose Route Start Last Admin Trade Name Freq PRN Reason Stop Dose Admin Epinephrine HCl Confirm 06/23/16 23:04 Adrenalin 1:1000 Administered 06/23/16 23:05 Dose 2 mg .ROUTE .STK-MED ONE Epinephrine HCl Confirm 06/23/16 23:08 Epinephrine 1:10,000 Administered 06/23/16 23:09 Dose 5 mg .ROUTE .STK-MED ONE Sodium Chloride 100 mls @ 65 mls/hr 06/23/16 20:00 06/23/16 20:26 Normal Saline IV 65 mls/hr ASDIRECTED SUYZ Administration Azithromycin 500 mg/ Sodium 250 mls @ 250 mls/hr 06/23/16 21:12 06/23/16 21: 51 Chloride IV 06/23/16 22:11 250 mls/hr ONETIME ONE Administration Ceftriaxone Sodium 1 gm/ 100 mls @ 200 mls/hr 06/23/16 21:12 06/23/16 21:51 Sodium Chloride IV 06/23/16 21:41 200 mls/hr ONETIME ONE Administration Dopamine HCl/Dextrose Confirm 06/23/16 22:29 Dopamine In D5w 400 Mg/250 Ml Administered 06/23/16 22:30 Dose 400 mg in 250 mls @ as directed .ROUTE .STK-MED ONE Iopamidol 100 ml 06/23/16 19:53 06/23/16 20:26 Isovue-370 (76%) IVPUSH 06/23/16 19:54 100 ml ONETIME ONE Administration Ondansetron HCl 4 mg 06/23/16 22:17 Zofran IVPUSH 06/23/16 22:18 ONETIME ONE Phenylephrine HCl Confirm 06/23/16 23:24 Orville-Synephrine Administered 06/23/16 23:25 Dose 20 mg .ROUTE .STK-MED ONE Sodium Chloride 10 ml 06/23/16 19:53 06/23/16 20:26 Saline Flush FLUSH 10 ml ONETIME PRN Administration IV FLUSH - Radiology Interpretation Free Text/Narrative:: CT angiogram of the chest is read by Dr. Gomez as: 1. No findings of pulmonary embolism. 2. Patchy areas of increased density within the right upper and more prominently within the right lower lung as well as lesser change within the left lower lung most likely representing multifocal pneumonia. These findings have worsened from prior exam. 3. Prior study showed a right-sided pleural effusion which is no longer seen. 4. Enlarged heart again noted with a small pericardial effusion which appears stable from prior exam. CT of the abdomen and pelvis with IV contrast is read by Dr. Gomez as: 1. Moderate amount of free fluid within the dependent portion of the pelvis which is nonspecific regarding etiology. 2. No additional abnormality is appreciated on CT study of the abdomen and pelvis. Chest findings as previously described on chest CT are again partially visualized. - Re-Assessments/Exams Free Text/Narrative Re-Assessment/Exam: 06/23/16 20:47 The respiratory therapist was unable to obtain an ABG, therefore I attempted a left brachial artery ABG, however, the patient's pulse is tachycardic and thready, and while I was able to palpate a pulse, I was unable to acquire an ABG. That being said, the patient's SpO2 is 100% on room air, and that he is quite tachypneic. I have no reason to believe his ABG results today would be any different than those of 2 days ago, demonstrating acute respiratory alkalosis with adequate oxygenation. 06/23/16 21:40 The patient's urine sample was acquired by quick catheter. The urinalysis demonstrates moderate bacteria, but no other signs of a UTI. I have ordered a urine culture. Please note that, as above, both Rocephin and azithromycin have already been ordered. 06/23/16 21:57 The patient is not orthostatic. 06/23/16 22:12 Test results explained to the patient and his mother in detail. While the patient's CTA of his chest to suggest pneumonia, and the patient has an elevated WBC count of 12.68, he has 0% bandemia, and no history of fever or cough, therefore it is unclear if the CT findings represents pneumonia or not. The patient states that he is compliant with his medications, and, indeed, his creatinine is beginning to rise, now 1.4. Nevertheless, his BNP continues to rise, now 4491, up from 2909 just 2 days ago. One would expect his BNP to rise initially after being started on Coreg, however, he has now been on Coreg for over 2 weeks, and yet his BNP has not plateaued. This concerns me for worsening cardiomyopathy, whatever the underlying cause is. I am therefore recommending the patient be transferred back to [facility], where he could be seen by his Heel Gouger, Dr. Patton. The patient was to see Dr. Patton tomorrow as an outpatient. The patient and his mother are agreeable to transfer. 06/24/16 04:27 The case was discussed with Dr. Perdue, Hospitalist at [facility] at 22:18. He accepted the patient for transfer. Immediately after I finished discussing the case with Dr. Perdue, a rapid response was called on the patient. He had developed bradycardia into the 60's , and fallen unresponsive. He became apneic, therefore was intubated and placed on a ventilator. His pulse was very weak and difficult to palpate, although that was the case prior to his becoming bradycardic and unresponsive, as well. We attempted to increase his heart rate by starting a dopamine drip at 10 mcg/kg/min, with no response, likely because the patient is on carvedilol. When his heart rate continued to decline, we attempted to externally pace the patient. There appeared to be cardiac capture, however, still no pulse was palpable, therefore manual chest compressions were started. Epinephrine was given. There was a strong femoral pulse with chest compressions. After 3 minutes, chest compressions were held, demonstrating a normal sinus rhythm on the monitor, but still no palpable pulse. A MCKAYLA device was applied, epinephrine given, and chest compressions resumed. Several round of chest compressions with epinephrine were given - please see the code blue record. Following each round, the patient had either a sinus rhythm, or electrical rhythm with heart block, but no palpable pulse, and his heart rate would deteriorate into the 40's within about a minute. Manual blood pressure was sometimes obtainable, but usually not. Towards the end of the prolonged code, phenylephrine 100 mcg IVP was given in an attempt to elevate the patient's BP, with no effect. Early on in the process, the patient developed blood in his ETT, which was suctioned by the respiratory therapist, and persisted throughout the code. During the code, I stepped out to discuss the situation with the patient's family. It was explained that despite our best efforts, the patient was not able to maintain a stable heart rate, palpable pulse, or blood pressure. They understood that we would likely be ceasing efforts soon. After numerous rounds of epinephrine and chest compressions, the patient developed asystole. No palpable pulse or heart tones on auscultation. No spontaneous respiratory efforts. No neurologic response to noxious stimuli. The patient was pronounced at 23:40 MDT. The Earth Boring Machine Operator Dr. Hope was notified at 00:02. 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 I spoke to Dr. Perdue again at 01:17 and notified him of the patient's expiration. Departure - Departure Time of Disposition: :20 Disposition: 20 Clinical Impression: Dilated cardiomyopathy Referrals: PCP,Not In Area [Primary Care Provider] - Forms: ED Department Discharge - My Orders Last 24 Hours: My Active Orders 06/23/16 19:43 EKG Documentation Completion [RC] STAT Orthostatic Vital Signs [RC] STAT 06/23/16 20:56 CULTURE URINE [RM] Stat 06/23/16 21:35 CULTURE BLOOD [BC] Stat 06/23/16 21:43 CULTURE BLOOD [BC] Stat - Assessment/Plan Last 24 Hours: My Active Orders 06/23/16 19:43 EKG Documentation Completion [RC] STAT Orthostatic Vital Signs [RC] STAT 06/23/16 20:56 CULTURE URINE [RM] Stat 06/23/16 21:35 CULTURE BLOOD [BC] Stat 06/23/16 21:43 CULTURE BLOOD [BC] Stat
[2016-06-23 19:44] VITALS: BP 107/81
[2016-06-23] MEDS ORDERED: Sodium Chloride 0.9% 10 ML Syringe FLUSH PRN (19:53)
[2016-06-23] MEDS ORDERED: Iopamidol 755 Mg/ML 100 ML Bottle IVPUSH ONE (19:53)
[2016-06-23] MEDS ORDERED: Sodium Chloride 0.9% 100 ML IV SCH (20:00)
--- NOTE | 2016-06-23 20:55 | CT ---
CT chest Technique: Multiple axial sections were obtained from above the lung apices inferiorly through the lung bases. Intravenous contrast was utilized. Study has been performed as a pulmonary angiogram protocol. Comparison: Previous chest CT of 06/06/16. Findings: Pulmonary arteries are well-opacified. No filling defects are seen to indicate pulmonary embolism. Hazy density within the superior mediastinum is seen which is felt compatible with residual thymic tissue. Patchy areas of increased density are seen within the right upper lung and more prominently within the right lower lung. Lesser parenchymal density seen within the left base. Findings have worsened from previous exam and findings presumably are due to multifocal pneumonia. Pleural effusion seen previously has resolved. Heart remains markedly enlarged with small pericardial effusion. Mediastinum and hilar regions show no adenopathy. Visualized upper abdominal structures are within normal limits. Impression: 1. No findings of pulmonary embolism. 2. Patchy areas of increased density within the right upper and more prominently within the right lower lung as well as lesser change within the left lower lung most likely representing multifocal pneumonia. These findings have worsened from prior exam. 3. Prior study showed a right sided pleural effusion which is no longer seen. 4. Enlarged heart again noted with small pericardial effusion which appears stable from prior exam. Diagnostic code #5
--- NOTE | 2016-06-23 20:57 | CT ---
CT abdomen and pelvis Technique: Multiple axial sections were obtained from above the dome of the diaphragm inferiorly through the pubic symphysis. Intravenous contrast was utilized. Delayed images were also obtained through the abdomen and pelvis. No oral contrast was given which limits evaluation of bowel. Findings: Increased density is again seen within both lung bases. Liver shows no focal parenchymal abnormality. Heart again noted to be enlarged with small pericardial effusion. Kidneys show symmetric contrast enhancement. Delayed images shows contrast within the ureters and within the bladder without evidence of obstruction. Adrenal glands show no nodule. Pancreas appears within normal limits. Aorta shows no aneurysmal dilatation. Gallbladder shows no calcified gallstones. No retroperitoneal adenopathy or mesenteric abnormalities are seen. Free fluid in seen within the pelvis which is nonspecific. Appendix difficult to see because of lack of oral contrast. Impression: 1. Moderate amount of free fluid within the dependent portion of the pelvis which is nonspecific regarding etiology. 2. No additional abnormality is appreciated on CT study of the abdomen and pelvis. Chest findings as previously described on chest CT are again partially visualized. Diagnostic code #3
[2016-06-23] MEDS ORDERED: Azithromycin 500 MG in Sodium Chloride 0.9% 250 ML IV ONE (21:12)
[2016-06-23] MEDS ORDERED: cefTRIAXone 1 GM in Sodium Chloride 0.9% 100 ML IV ONE (21:12)
[2016-06-23] MEDS ORDERED: Ondansetron 4 MG/2 ML SDV IVPUSH ONE (22:17)
[2016-06-23] MEDS ORDERED: DOPamine/Dextrose 5%-Water 400 MG/250 ML BAG ONE (22:29)
[2016-06-23] MEDS ORDERED: DOPamine/Dextrose 5%-Water 400 MG/250 ML BAG IV ONE (22:30)
[2016-06-23] MEDS ORDERED: Sodium Chloride 0.9% 10 ML Syringe ONE (22:48)
[2016-06-23] MEDS ORDERED: Sodium Chloride 0.9% 500 ML IV ONE (22:53)
[2016-06-23] MEDS ORDERED: EPINEPHrine 1:1000 1 MG/ML SDV ONE (23:04)
[2016-06-23] MEDS ORDERED: EPINEPHrine 1:10,000 1 MG/10 ML Syringe ONE ×3 (23:08→23:11)
[2016-06-23] MEDS ORDERED: Phenylephrine 1% 10 MG/ML SDV ONE ×2 (23:24→23:25)
== END 2016-06-24 02:25 | disposition expired ==
LOC: JD.ED 19:32
DX: I42.0 Dilated cardiomyopathy (principal); F15.20 Other stimulant dependence, uncomplicated; Z79.82 Long term (current) use of aspirin; Z79.899 Other long term (current) drug therapy; I50.9 Heart failure, unspecified; F17.200 Nicotine dependence, unspecified, uncomplicated; F41.9 Anxiety disorder, unspecified
CPT/HCPCS: 36415; 71275; 74177; 80053; 80306; 81001; 83605; 83690; 83735; 83880; 84484; 85025; 87040; 87086; 92950; 93005; 94002; 96365; 96368; 96375; 96376; 99291; J0171; J0456; J0696; J1265; J2370; J7030; J7040; J7050; Q9967; 31500; 92953; 99292